=== PATIENT | male | born 1960 | race African-American/Black ===

== ENCOUNTER 2019-05-26 19:03 | Emergency (ER) | payer OTHER ==
[~2019-05-26] VITALS: Ht 185.4 cm; Wt 112.0 kg
[2019-05-26] MEDS ORDERED: FLONASE 0.05%50 MCG NARES (19:09)
[2019-05-26] MEDS ORDERED: VYZULTA5 ML OPHTHALMIC (19:14)
[2019-05-26] MEDS ORDERED: LISINOPRIL2.5 MG PO (19:17)
[2019-05-26] MEDS ORDERED: DULCOLAX STOOL100 M1 PO (19:18)
[2019-05-26] MEDS ORDERED: MIRALAX119 GM PO (19:18)
[2019-05-26] MEDS ORDERED: LORATIDINE 10 M10 M1 PO (19:18)
[2019-05-26] MEDS ORDERED: SUPER THERAVIT1 EACH PO (19:18)
[2019-05-26 19:25] LABS: ABSOLUTE NEUTROPHILS 3.1 thou/uL (1.4-8.2); BASOPHILS 0.7 % (0.0-2.0); EOSINOPHILS 5.9 % (0.0-3.0); HEMOGLOBIN 14.8 gm/dL (14.0-18.0); LYMPHOCYTES 25.8 % (24.0-44.0); MCH 29.3 pg (26.0-34.0); MCHC 32.9 g/dL (28.0-37.0); MCV 88.9 fL (80.0-100.0); MONOCYTES 10.7 % (1.0-8.0); PLATELET COUNT 152 thou/uL (150-400); POLYS 56.9 % (36.0-66.0); RBC 5.06 mil/uL (4.50-6.00); RDW 15.6 % (10.5-14.5); WBC 5.4 thou/uL (4.0-11.0)
[2019-05-26 19:33] LABS: ANION GAP 7 mmol/L (7-16); BUN 15 mg/dL (7-18); CHLORIDE 102 mmol/L (98-107); CO2 28 mmol/L (21-32); CREATININE 0.9 mg/dL (0.7-1.3); GLUCOSE 98 mg/dL (74-106); POTASSIUM 3.9 mmol/L (3.5-5.1); SODIUM 137 mmol/L (136-145)
[2019-05-26 19:35] LABS: CALCIUM 12.1 mg/dL (8.5-10.1)
[2019-05-26 19:43] LABS: ALBUMIN 3.7 g/dL (3.4-5.0); LIPASE 80 U/L (73-393); SGOT 22 U/L (15-37); SGPT 56 U/L (30-65); TOTAL BILIRUBIN 0.3 mg/dL (<0.1-1.0); TOTAL PROTEIN 7.4 g/dL (6.4-8.2); TROPONIN-I <0.06 ng/mL (<0.06)
[2019-05-26] MEDS ORDERED: ZANAFLEX4 M2 PO (21:33)
[2019-05-26] MEDS ORDERED: LYRICA200 MG PO (21:33)
[2019-05-26] MEDS ORDERED: BACLOFEN 10MG T10 MG PO (21:33)
[2019-05-26] MEDS ORDERED: ROBAXIN 750 MG750 MG PO (21:34)
[2019-05-26] MEDS ORDERED: NORTRIPTYLINE H10 M1 PO (21:34)
[2019-05-26] MEDS ORDERED: RESTORIL15 M1 PO (21:35)
[2019-05-26] MEDS ORDERED: ARTIFICIAL TEA1 EACH (21:35)
[2019-05-26] MEDS ORDERED: OXYCODONE HCL 55 MG PO ×2 (22:21→22:22)
[2019-05-27 00:20] VITALS: BP 139/73
--- NOTE | 2019-05-28 08:35 | EKG ---
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[facility] : 1960 Requested By: Caleb Avilez Order Number: [id number] MD: Rod Cardona Measurements Intervals [place] Rate: 71 P: 20 NC: 145 QRS: 13 QRSD: 93 T: 73 QT: 387 QTc: 421 Interpretive Statements Sinus rhythm Abnormal R-wave progression, early transition Nonspecific T abnormalities No previous ECG available for comparison Electronically Signed On 05-28-2019 8:35:00 SCHOOL ADJUSTMENT COUNSELOR by Rod Cardona [email or web address] <ELECTRONICALLY SIGNED> By: Rod Cardona MD, [facility] 05/28/19 0835 28 28 Rod Cardona MD, [facility] /EPI
== END 2019-05-27 00:34 | disposition home or self-care (01) ==
LOC: ER 19:03
PROVIDERS: Emergency Medicine
DX: E83.52 Hypercalcemia (principal); K59.00 Constipation, unspecified; F17.210 Nicotine dependence, cigarettes, uncomplicated

== ENCOUNTER 2019-05-30 23:54 | Inpatient (IN) | payer OTHER ==
[~2019-05-30] VITALS: Ht 185.4 cm; Wt 112.0 kg
--- NOTE | ~2019-05-30 | EMS ---
[address] [address] EMS Patient Care Report Name: LUPE SULTANA Room #: 441-P ADM IN M.R.#: [id number] Admission: 05/31/19 Attend Phys: Johnson Adams MD Discharge: Date of : 64 Report #: [id number] THIS REPORT FOR: //name// Report Transmitted: 05/30/2019 23:25 EMS Care Summary [place], [place]/[facility] Incident [id number] @ 05/30/2019 23:19 Incident [address] [place] [address] Patient LUPE SULTANA Male, 59 Years 1960 Patient Address [address] [place], [place] [id number] Patient History Hypertension (HTN),Paraplegia,Glaucoma, Patient Allergies No known allergies, Patient Medications Docusate Sodium, Loratadine, Fluticasone, Baclofen, Nortriptyline, Colace, Tizanidine, Polyethlene Glycol, Lisinopril, Chief Complaint AB PAIN Disposition Transported No Lights/[place] Dispatch Reason Abdominal Pain/Problems Transported To [facility] Narrative PT FOUND LYING IN BED. PT STATES HE HAS HAD AB PAIN FOR 1 WEEK. STAFF STATES XRAY SHOWS BOWEL OBSTRUCTION. TRANSPORTED WITHOUT INCIDENT. [address] [address] EMS Patient Care Report Name: LUPE SUTLANA Room #: 441-P ADM IN [facility].#: [id number] Admission: 05/31/19 Attend Phys: Johnson Adams MD Discharge: Date of : 64 Report #: [id number] Initial Vitals @23:40P: 94,R: 18,BP: 139/88,Pain: 4/10,GCS: 15,SpO2: 97,Revised Trauma: 12, Assessments @23:30MENTAL:No Abnormalities,SKIN:No Abnormalities,HEENT:Head/Face: No Abnormalities,Eyes: No Abnormalities,Neck/Airway: No Abnormalities,LUNG SOUNDS:General: Other,ABDOMEN:General: Other,PELVIS//GI:EXTREMITIES:PULSE:NEURO:No Abnormalities, Impression Abdominal Pain Procedures @23:30ALS AssessmentResponse: UnchangedSucceeded Timeline 23:16,Call Received 23:16,Dispatch Notified 23:19,Dispatched 23:20,En Route 23:24,On Scene 23:30,At Patient 23:30,ALS Assessment,Response: UnchangedSucceeded, 23:40,BP: 139/88 M,PULSE: 94,RR: 18 R,SPO2: 97 Ox,ETCO2: ,BG: ,PAIN: 4,GCS: 15, 23:41,Depart Scene 23:48,At Destination 00:06,Call Closed Disclaimer v1.1 Copyright 2020 [employer] This EMS Care Summary contains data elements from the applicable legal record (which may be displayed differently). It is designed to provide pertinent information for the following purposes: continuity of care, clinical quality, and state data reporting. The complete legal record is available to ED staff and administrators of the receiving hospital in [facility]'s Patient Tracker. All data is provided "as is."
--- NOTE | ~2019-05-30 | O ---
[facility] [place] [address] [place] [address] OPERATIVE REPORT Name: LUPE SULTANA Room #: 150-1 ADM IN M.R.#: [id number] Admission: 05/31/19 Attend Phys: Ansley Yoo MD Discharge: Date of : 64 Report #: [id number] THIS REPORT FOR: cc: [facility] - Clinic physician unknown [facility] - Clinic physician unknown Lauro Thibodeaux MD ~ CC: Ansley Yoo [facility] unknown DATE OF SERVICE: 05/31/2019 PREOPERATIVE DIAGNOSES: Small-bowel obstruction secondary to closed loop obstruction, possible internal hernia. POSTOPERATIVE DIAGNOSIS: Normal diagnostic laparoscopy. OPERATIVE PROCEDURE DONE: Diagnostic laparoscopy. OPERATING SURGEON: Lauro Thibodeaux MD SENIOR BI DEVELOPER: Jadon. INDICATIONS FOR THE PROCEDURE: The patient is a 59-year-old male who presented with abdominal distention and nausea. He has a history of quadriplegia. CT scan that was done showed features of a closed loop obstruction. The patient was advised diagnostic laparoscopy. The patient showed understanding and agreed to proceed. DESCRIPTION OF PROCEDURE: After explaining to the patient in detail and informed consent was obtained, the patient was identified in the preoperative holding area. The patient was transferred to the operating room and was placed in supine position. Subsequent sterile compressive devices were placed for DVT prophylaxis. Preoperative antibiotics were given. After induction of anesthesia, the patient was noted to have a large bowel movement on the operating table. Once this was cleaned up, the abdomen was prepped and draped in a sterile fashion. Through a left upper quadrant 1 cm incision using Optiview technique, peritoneal cavity was entered and pneumoperitoneum was created. Thereafter, under direct vision, another 5 mm trocar was placed in the left flank and another 5 mm trocar was placed in the left lower quadrant. On initial inspection, the colon appeared normal. I then inspected the small bowel from the terminal ileum proximally up to the ligament of Treitz. I did not notice any evidence of internal hernia or features to suggest obstruction or ischemia. The rest of the abdominal viscera appeared normal. The abdomen was then deflated. Incisions were then closed with 4-0 Monocryl. Dermabond was applied. The patient was stable at the end of the procedure. The patient was awoken from anesthesia and was transferred to the recovery room in [address] [address] OPERATIVE REPORT Name: LUPE SULTANA Room #: 150-1 [facility] IN [facility]#: [id number] Admission: 05/31/19 Attend Phys: Ansley Yoo MD Discharge: Date of : 64 Report #: [id number] condition. ESTIMATED BLOOD LOSS: Minimal. CONDITION OF THE PATIENT: Stable. FLUIDS GIVEN: Per anesthesia notes. SPECIMEN SENT: None. COMPLICATIONS: None. ANESTHESIA: General anesthesia. By: [id number] Lauro Thibodeaux MD /nt
[~2019-05-30 23:54] MED LIST: ARTIFICIAL TEA1 EACH; BACLOFEN 10MG T10 MG PO; DULCOLAX STOOL100 M1 PO; FLONASE 0.05%50 MCG NARES; LISINOPRIL2.5 MG PO; LORATIDINE 10 M10 M1 PO; LYRICA200 MG PO; MIRALAX119 GM PO; NORTRIPTYLINE H10 M1 PO; OXYCODONE HCL 55 MG PO; RESTORIL15 M1 PO; ROBAXIN 750 MG750 MG PO; SUPER THERAVIT1 EACH PO; VYZULTA5 ML OPHTHALMIC; ZANAFLEX4 M2 PO
[2019-05-31 00:01] VITALS: BP 132/74
[2019-05-31 00:30] LABS: ABSOLUTE NEUTROPHILS 7.6 thou/uL (1.4-8.2); BASOPHILS 0.4 % (0.0-2.0); EOSINOPHILS 0.3 % (0.0-3.0); HEMATOCRIT 45.7 % (42.0-52.0); HEMOGLOBIN 15.2 gm/dL (14.0-18.0); LYMPHOCYTES 12.6 % (24.0-44.0); MCH 29.3 pg (26.0-34.0); MCHC 33.2 g/dL (28.0-37.0); MCV 88.2 fL (80.0-100.0); PLATELET COUNT 189 thou/uL (150-400); POLYS 80.7 % (36.0-66.0); RBC 5.18 mil/uL (4.50-6.00); RDW 15.9 % (10.5-14.5); WBC 9.5 thou/uL (4.0-11.0)
[2019-05-31 00:39] LABS: ALBUMIN 3.2 g/dL (3.4-5.0); POTASSIUM 3.6 mmol/L (3.5-5.1); TOTAL BILIRUBIN 0.3 mg/dL (<0.1-1.0); TOTAL PROTEIN 7.1 g/dL (6.4-8.2)
[2019-05-31 00:48] LABS: CALCIUM 13.3 mg/dL (8.5-10.1)
[2019-05-31] MEDS ORDERED: ARTIFICIAL TEA1 EACH (03:59)
--- NOTE | 2019-05-31 04:17 | NUR ---
DR DURON TALKED WITH DR SOW
[2019-05-31 05:18] LABS: PROTIME 10.5 Seconds (9.3-11.4)
[2019-05-31 09:01] LABS: CREATININE 0.9 mg/dL (0.7-1.3); POTASSIUM 3.6 mmol/L (3.5-5.1)
[2019-05-31 09:03] LABS: CALCIUM 12.1 mg/dL (8.5-10.1)
--- NOTE | 2019-05-31 12:34 | NUR ---
NGT RIGHT NARE AT 56CM PER ANESTHESIA ORDERS
[2019-05-31 13:30] VITALS: BP 126/75
--- NOTE | 2019-05-31 19:49 | NUR ---
59 YO MALE ADMITTED FROM PACU. A&OX4. IV INTACT IN L AC AND R H. PT IS A PARA FROM A FALL LAST YEAR. REQUIRES 02 @ 4 LITERS TO [facility] SAT ABOVE 91%. INCONT OF B/B. CONDOM CATH PALACED ON PT. BED RESEARCH EXECUTIVE ORDERED. IV FLUIDS STARTED. ORIENTED PT TO ROOM. BED ALARM OM.
[2019-05-31 20:20] VITALS: BP 162/101
--- NOTE | 2019-06-01 03:39 | NUR ---
1910 ASSUMED CARE OF PT AFTER BEDSIDE REPORT, PT IS PARAPLEGIC WITH SENSATION, PT HAS TREMORS TO Bue WITH MOVEMENT. PT IS Q2HOUR TURN, WITH FALL PRECAUTIONS IN PLACE. PT WITH MED SOFT BM, AND CONDOM CATHETER IN PLACE. BLOW CALL LIGHT PLACED FOR PT, WILL CONTINUE TO MONITOR. INCISIONS TO ABDOMEN GLUED AND CLOSED, BLE ELEVATED
[2019-06-01 04:30] VITALS: BP 130/83
[2019-06-01 06:07] LABS: HEMATOCRIT 39.7 % (42.0-52.0); MCHC 32.4 g/dL (28.0-37.0); MCV 89.7 fL (80.0-100.0); RBC 4.43 mil/uL (4.50-6.00); RDW 15.8 % (10.5-14.5)
[2019-06-01 06:19] LABS: HEMOGLOBIN 12.9 gm/dL (14.0-18.0)
[2019-06-01 06:24] LABS: CALCIUM 11.8 mg/dL (8.5-10.1); POTASSIUM 3.7 mmol/L (3.5-5.1)
[2019-06-01 07:48] VITALS: BP 128/73
--- NOTE | 2019-06-01 09:25 | EKG ---
[facility] [place] [address] ELECTROCARDIOGRAM REPORT Name: LUPE SULTANA Room #: 441-P ADM IN M.R.#: [id number] Admission: 05/31/19 Attend Phys: Johnson Adams MD Discharge: Date of : 64 Report #: [id number] THIS REPORT FOR: cc: [facility] - Clinic physician unknown [facility] - Clinic physician unknown Rod Cardona MD [facility] THIS REPORT FOR: //name// [facility] ED Test Date: 2019-05-31 Test Time: 03:39:23 Pat Name: LUPE SULTANA Department: Room: [facility] Gender: M 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
[2019-06-01 12:02] LABS: PHOSPHORUS 1.5 mg/dL (2.5-4.9)
--- NOTE | 2019-06-01 15:41 | NUR ---
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 PT IS A QUADRAPLEGIC FROM FALLING DOWN A FLIGHT OF STAIRS. PT NEEDS ASSIST WITH ADLS AND TRANSFERS TO A WITH A LIFT DEVICE. PT SAYS HE WOULD LIKE A COPY OF HIS h&p AND DC SUMMARY WHEN HE LEAVES HERE SO HE CAN TAKE TO DISABILITY OFFICE. FOLLOWING TO ASSIST WITH DC PLANNING.
--- NOTE | 2019-06-01 16:40 | NUR ---
FAXED CLINICAL UPDATE TO [facility] RECEIVED CONFIRMATION AND LEFT MSG WITH SHELLEY (SHAWANDA) THAT UPDATE HAS BEEN FAXED. DP TO FOLLOW.
[2019-06-01 18:55] VITALS: BP 130/86
--- NOTE | 2019-06-01 19:07 | NUR ---
VSS-AFEBRILE. LUNGS CLEAR-2LNC. TURNED EVERY TWO HOURS FOR COMFORT. PAIN WELL CONTROLLED WITH IV PAIN MEDICATIONS. NO REPORTED N/V, TOLERATED CLEAR LIQUID DIET. POSITIVE BS-PASSING FLATUS. CALLS APPROPRIATELY FOR ASSISTANCE, FALL PRECAUTIONS IN PLACE.
[2019-06-01 19:30] VITALS: BP 143/93
[2019-06-02 04:10] VITALS: BP 147/92
--- NOTE | 2019-06-02 04:34 | NUR ---
ASSESSMENT COMPLEETD.PT C/O PAIN ON HIS ABCK,MANAGED WITH MED.PT REPOSITIONED WHILE IN BED.PT HAD ONE EPISODE OF LOOSE STOOL,COMPLETE BED CHANGE AND PEDRO CARE DONE.CONDOM CATH IN PLACE TO DD.PT CONT ON HIS IV ABX.PT HAS THREE LAP SITE COVERED WITH DERMABOND.PT RESTING ON HIS BED AT THIS TIME.FALL PRECAUTIONS IN PLACE,CALL LIGHT WITHIN REACH.
[2019-06-02 06:02] LABS: ABSOLUTE NEUTROPHILS 4.5 thou/uL (1.4-8.2); BASOPHILS 0.6 % (0.0-2.0); EOSINOPHILS 1.1 % (0.0-3.0); HEMATOCRIT 40.1 % (42.0-52.0); LYMPHOCYTES 23.1 % (24.0-44.0); MCH 29.3 pg (26.0-34.0); MCHC 32.5 g/dL (28.0-37.0); MCV 90.2 fL (80.0-100.0); MONOCYTES 10.1 % (1.0-8.0); PLATELET COUNT 178 thou/uL (150-400); POLYS 65.1 % (36.0-66.0); RBC 4.45 mil/uL (4.50-6.00); RDW 15.5 % (10.5-14.5); WBC 6.9 thou/uL (4.0-11.0)
[2019-06-02 06:14] LABS: CALCIUM 11.9 mg/dL (8.5-10.1); CREATININE 0.9 mg/dL (0.7-1.3); POTASSIUM 3.1 mmol/L (3.5-5.1)
[2019-06-02 08:41] VITALS: BP 164/100
[2019-06-02] MEDS ORDERED: AUGMENTIN 875-1 EACH PO (13:56)
--- NOTE | 2019-06-02 14:57 | NUR ---
Assumed care of pt at 0700. Pt quadriplegic. Q2h turn. Condom catheter in place. Diet advanced. Pt tolerated well. Will be discharged to [facility]. [facility] called and stated they can receive patient today. Prefer ambulance transport. Called non-emergent ambulance transport. State pt needs approval from [place] emergency department for Medicaid. [facility] called. State they cannot find patient. [facility] called for [facility], [facility]. Pick-up between [phone]. Will give report to Erin yee. Fall precautions in place. Will continue to monitor.
[2019-06-02 18:03] VITALS: BP 108/63
== END 2019-06-02 18:12 | DRG 326 ==
LOC: ER 23:54 → EROBS 05-31 02:52 → 4S 05-31 02:52 → TBA 05-31 13:31 → 4S 05-31 16:05
PROVIDERS: Emergency Medicine Emergency Medical Services; Nurse Practitioner Family; Surgery; ADMIT Hospitalist
PROC: 0DJ04ZZ Inspection of Upper Intestinal Tract, Percutaneous Endoscopic Approach (ICD-10-PCS; principal; 2019-05-31)
DX: K56.609 Unspecified intestinal obstruction, unspecified as to partial versus complete obstruction (principal); J18.9 Pneumonia, unspecified organism; G82.50 Quadriplegia, unspecified; K59.2 Neurogenic bowel, not elsewhere classified; F32.9 Major depressive disorder, single episode, unspecified; F17.210 Nicotine dependence, cigarettes, uncomplicated; E83.52 Hypercalcemia; N31.9 Neuromuscular dysfunction of bladder, unspecified; K52.9 Noninfective gastroenteritis and colitis, unspecified; K56.7 Ileus, unspecified; Z28.21 Immunization not carried out because of patient refusal; Z79.899 Other long term (current) drug therapy
CPT/HCPCS: 10102; 50010; 50101; 50249; 50411; 50555; 52265; 53307; 54118; 56462; 56526; 70005

== ENCOUNTER 2019-08-18 21:15 | Inpatient (IN) | payer OTHER ==
[~2019-08-18] VITALS: Ht 185.4 cm; Wt 129.4 kg
[~2019-08-18 21:15] MED LIST changes: +AUGMENTIN 875-1 EACH PO
[2019-08-18 21:24] VITALS: BP 132/87
[2019-08-18 21:40] LABS: HEMATOCRIT 46.9 % (42.0-52.0); HEMOGLOBIN 15.6 gm/dL (14.0-18.0); MCH 29.8 pg (26.0-34.0); MCHC 33.2 g/dL (28.0-37.0); MCV 89.8 fL (80.0-100.0); PLATELET COUNT 139 thou/uL (150-400); RBC 5.22 mil/uL (4.50-6.00); RDW 15.8 % (10.5-14.5); WBC 5.9 thou/uL (4.0-11.0)
[2019-08-18] MEDS ORDERED: BACLOFEN 10MG T10 MG PO (21:44)
[2019-08-18 21:53] LABS: ALBUMIN 3.6 g/dL (3.4-5.0); ANION GAP 6 mmol/L (7-16); BUN 12 mg/dL (7-18); CHLORIDE 106 mmol/L (98-107); CO2 30 mmol/L (21-32); GLUCOSE 100 mg/dL (74-106); LIPASE 85 U/L (73-393); POTASSIUM 3.5 mmol/L (3.5-5.1); SGOT 34 U/L (15-37); SGPT 98 U/L (30-65); SODIUM 142 mmol/L (136-145); TOTAL BILIRUBIN 0.5 mg/dL (<0.1-1.0); TOTAL PROTEIN 7.3 g/dL (6.4-8.2)
[2019-08-18 22:12] LABS: ABSOLUTE NEUTROPHILS 3.1 thou/uL (1.4-8.2)
[2019-08-18 22:15] LABS: CALCIUM 12.5 mg/dL (8.5-10.1); TROPONIN-I <0.06 ng/mL (<0.06)
[2019-08-18 22:33] LABS: MAGNESIUM 1.5 mg/dL (1.8-2.4); PHOSPHORUS 1.7 mg/dL (2.5-4.9)
[2019-08-18 23:10] VITALS: BP 132/87
[2019-08-18 23:50] VITALS: BP 151/91
[2019-08-19 00:46] VITALS: BP 155/14
[2019-08-19 04:33] VITALS: BP 133/73
[2019-08-19 07:19] VITALS: BP 152/84
--- NOTE | 2019-08-19 07:25 | NUR ---
PATIENT ADMITTED FOR ABD PAIN. PATIENT DENIED PAIN OR DISCOMFORT AT THIS TIME. PATIENT IS CALM AND COOPERATIVE WITH CARE AND MEDS.PATIENT AOX4 MAKES NEEDS KNOWN. PATIENT IS A QUAD. TURN Q 2 HOURS. PATIENT ON CLEAR LIQUIDS AND TOLERATED WELL. PATIENT SKIN IS WARM AND INTACT. PATIENT IS A TOTAL CARE. FALL PRECAUTION IN PLACE.PATIENT IN BED ASLEEP AT THIS TIME BREATHING REGULAR AND UNLABOURED.
[2019-08-19 07:35] LABS: HEMATOCRIT 45.5 % (42.0-52.0); HEMOGLOBIN 15.2 gm/dL (14.0-18.0); MCH 29.8 pg (26.0-34.0); MCHC 33.3 g/dL (28.0-37.0); MCV 89.4 fL (80.0-100.0); RBC 5.1 mil/uL (4.50-6.00); RDW 15.5 % (10.5-14.5); WBC 4.7 thou/uL (4.0-11.0)
[2019-08-19 07:58] LABS: CREATININE 0.8 mg/dL (0.7-1.3); MAGNESIUM 1.7 mg/dL (1.8-2.4); PHOSPHORUS 2.5 mg/dL (2.5-4.9); POTASSIUM 3.2 mmol/L (3.5-5.1)
[2019-08-19 08:35] LABS: CREATININE 0.8 mg/dL (0.7-1.3); PHOSPHORUS 2.7 mg/dL (2.5-4.9)
[2019-08-19 14:35] VITALS: BP 141/80
--- NOTE | 2019-08-19 19:54 | NUR ---
Assumed patient care at 0715. Vital signs stable. LSCTA, abdomen soft and non-tender, BS x's 4, skin is clean, warm, dry and intact. Pillows have been repositioned several times today, under his arms. legs and feet. Patient continues on a clear liquid diet with good intake. He currently has a [place] catheter in place (total output for this shift was 1350cc). He was given Miralax as scheduled with am medications; no results as of this time. Patient has a flat affect but has been pleasant and cooperative. Normal Saline continues at 125cc/hr. Patient has complained of pain to upper and lower extremeties; he was educated to let nurse know if Lyrica and Baclofen did not completely relieve the pain (he voiced no further complaints). Novelty Printing Machine Operator notified of patient's need for a modified call light for this patient; still waiting for response. Patient has been checked on and assisted often throughout this shift. Report given to on-coming nnurse.
[2019-08-19 20:36] VITALS: BP 146/86
--- NOTE | 2019-08-20 04:16 | NUR ---
PATIENT IS QUADRAPLEGIA, PATIENT TURNED Q 2 TURN. PERICARE AND BARRIER CREAM APPLIED NEEDED. PATIENT IS CALM AND COOPERATIVE WITH CARE AND MEDS. PATIENT IN BED ASLEEP AT THIS TIME BREATHING REGULAR AND UNLABOURED.
[2019-08-20 07:54] VITALS: BP 139/79
--- NOTE | 2019-08-20 08:03 | EKG ---
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 : 1960 Requested By: Laci Acuña Order Number: [id number] MD: Rod Cardona Measurements Intervals [place] Rate: 75 P: 44 GA: 157 QRS: 21 QRSD: 101 T: 59 QT: 352 QTc: 394 Interpretive Statements Sinus rhythm Abnormal R-wave progression, early transition Compared to ECG 05/31/2019 03:39:23 No significant change was found Electronically Signed On 08-20-2019 8:01:27 CDT by Rod Cardona [email or web address] <ELECTRONICALLY SIGNED> By: Rod Cardona MD, [facility] 08/20/19 0801 38 38 Rod Cardona MD, [facility] /EPI
[2019-08-20 12:40] LABS: HEMATOCRIT 42.3 % (42.0-52.0); MCH 29.5 pg (26.0-34.0); MCHC 33.1 g/dL (28.0-37.0); MCV 88.9 fL (80.0-100.0); RBC 4.75 mil/uL (4.50-6.00); RDW 15.7 % (10.5-14.5); WBC 5.4 thou/uL (4.0-11.0)
[2019-08-20 12:47] LABS: CALCIUM 10.8 mg/dL (8.5-10.1); MAGNESIUM 1.6 mg/dL (1.8-2.4); POTASSIUM 3.6 mmol/L (3.5-5.1); TOTAL BILIRUBIN 0.4 mg/dL (<0.1-1.0); TOTAL PROTEIN 6.3 g/dL (6.4-8.2)
[2019-08-20 12:54] LABS: APTT 28.8 Seconds (24.5-32.8); INR 1.1; PROTIME 10.8 Seconds (9.3-11.4)
--- NOTE | 2019-08-20 14:18 | NUR ---
PT ADMITTED RELATED TO ABD PAIN. CM REVIEWED CHART AND SPOKE WITH CARE TEAM. CM CALLED AND SPOKE WITH PT AT BEDSIDE THIS DAY. PT APPEARED TO BE A&O X4. CM ROLE INTRODUCED. PT INDICATED HE LIVES IN LTC AT [facility]. PT INDICATED HE NEEDED ASSISTANCE WITH ALL ADLS AND THAT STAFF HAD USED A ARNAUD LIFT TO ASSIST WITH TRANSFERS PAYMENT PROCESSOR. PT IS QUADRAPLEGIC. PT INDICATED THAT HE ANTICPATES RETURNING TO [facility] ONCE MEDICALLY STABLE. CLINICAL INFO SENT TO FACILITY. CM TO FOLLOW INDICATED WITH DC PLANNING.
[2019-08-20 16:27] VITALS: BP 138/87
--- NOTE | 2019-08-20 19:34 | HC ---
[facility] [place] [address] CONSULTATION Name: LUPE SULTANA Room #: 463-P ADM IN M.R.#: [id number] Admission: 08/19/19 Attend Phys: Ansley Yoo MD Discharge: Date of : 64 Report #: [id number] THIS REPORT FOR: cc: [facility] - Clinic physician unknown [facility] - Clinic physician unknown Anurag Magana MD ~ CC: [facility] unknown Cari Fang Leoncio DATE OF SERVICE: 08/19/2019 HISTORY OF PRESENT ILLNESS: The patient is a 59-year-old male admitted through the Emergency Room with increasing abdominal bloating and pain, also with a history of diarrhea, although he states he has been taking MiraLax from time to time at his nursing facility. The patient has a history of quadriplegia, although he is able to move somewhat his upper extremities and left lower extremity. He states he is able to sense when he needs to have a bowel movement. He is unsure when his last colonoscopy was performed, he thought it may have been during the last hospitalization. He underwent a hospitalization in May this year for small-bowel obstruction. He actually had an exploratory laparoscopy at that time, which was normal. The CT at that time suggested a closed loop small-bowel obstruction. The patient recovered from surgery without difficulty. He reports increasing abdominal distention at times, he does have pain during these episodes, it does tend to improve after a bowel movement. He denies any obvious blood in his stools. He denies any nausea or vomiting, no dysphagia, no heartburn symptoms. His appetite has been normal. No family history of colon cancer. He underwent a CT scan of the abdomen and pelvis on admission yesterday that showed gaseous distention in the distal colon and rectum, no evidence of colitis or diverticulitis, a normal appendix, stomach was normal, small bowel normal. He denies any chest pain or shortness of breath. No cough or fever. PAST MEDICAL HISTORY: Quadriplegia secondary to traumatic fall approximately 1 year ago, history of hypertension, small-bowel obstruction in May this year with normal laparoscopy, neurogenic bladder, hypercalcemia, depression, previous history of pneumonia. REVIEW OF SYSTEMS: As per HPI. SOCIAL HISTORY: He is a longtime smoker, continues to smoke. Denies any alcohol use. FAMILY HISTORY: Negative for colon cancer. ALLERGIES: No known drug allergies. [facility] [address] [place] [address] CONSULTATION Name: SULTANALUPE JARVIS Room #: 463-P [facility] ..#: [id number] Admission: 08/19/19 Attend Phys: Ansley Yoo MD Discharge: Date of : 64 Report #: [id number] MEDICATIONS: This is on admission, Flonase, Vyzulta, Zestril, loratadine, multivitamin, MiraLax, Lyrica, Zanaflex, baclofen, Robaxin, nortriptyline, Restoril, oxycodone IR, docusate. PHYSICAL EXAMINATION: VITAL SIGNS: Temperature is 98.6, pulse 75, blood pressure 141/80, respiratory rate is 18. GENERAL: He is alert and oriented x 3, in no acute distress. HEENT: Sclerae nonicteric. Oropharynx clear. NECK: Supple, without lymphadenopathy. CARDIOVASCULAR: Regular rate and rhythm. CHEST: Clear to auscultation bilaterally. ABDOMEN: Soft. He is mildly distended, positive bowel sounds, and nontender. EXTREMITIES: Unable to move his right lower extremity, able to move his left lower extremity, limited motion, less mobility in his right upper extremity compared to his left, but both are compromised. LABORATORY DATA: Sodium 144, potassium 3.2, chloride 108, bicarbonate 28, BUN 11, creatinine 0.8, glucose 98, AST 34, lipase 85, total bilirubin 0.5, calcium 12.0, magnesium 1.7, alkaline phosphatase 141, ALT is 98, albumin 3.6, lactic acid level 1.2. Troponin less than 0.06. WBC is 4.7, hemoglobin 15.2, platelet count is 125. PTH is 94. ASSESSMENT AND PLAN: 1. Abdominal pain and abdominal distention, etiology is unclear. It appears the patient has some history of constipation and is on MiraLax and stool softeners at his nursing facility; however, recently also complains of diarrhea. He does report improvement in his symptoms after a bowel movement. It is unclear when the patient has had his last colonoscopy, may need to consider repeat colonoscopy in the near future. He did have some mild gaseous distention of the rectum and distal colon. He denies any evidence of bleeding. His white count and hemoglobin are normal, he is afebrile. Again, consider possible colonoscopy in the near future for further evaluation. The patient had laparoscopy in May, which was normal. There were no signs of bowel obstruction on CT during this hospitalization. 2. Mild elevation in his liver function tests. No history of liver disease. Gallbladder and liver were normal on CT. Would monitor at this point. If they remain elevated, may need to consider further workup. Thank you for allowing me to participate in his care. <ELECTRONICALLY SIGNED> By: Anurag Magana MD 08/20/19 1934 1656 27 Anurag Magana MD /stevie
--- NOTE | 2019-08-20 19:39 | NUR ---
Assumed patient care at 0715. Vital signs stable, LSCTA (diminished), abdomen is non-tender and distended. Patient has not had a BM for the last two days. He continues on Clear Liquids, may have surgery on Thyroid within the next few days. Nuclear Medicine called to report that patient cannot have a Parathyroid Test or be on any Thyroid Medications for three weeks due to a recent test with contrast on the 16th of this month. Patient's IV is patent/saline locked in left anticubital area. No prn medication medications requested/needed today; scheduled pain medications have been effective for this patient. Report given to on-coming nurse.
[2019-08-20 20:21] VITALS: BP 160/103
--- NOTE | 2019-08-21 02:25 | NUR ---
PT CARE ASSUMED AT 1915 WITH PT IN BED.PT IS A/O X4.PT IS BEDBOUND AND MAXIMUM ASSIST.PT HAS A CONDOM CATHETER IN PLACE .PT IS TOTAL CARE AND QUADRAPLEGIA.PT IS A FEEDER .PT ON CLEAR LIQUID DIET .PT C/O OF ROGHT SIDE PAIN AND WAS ADMINISTERED MORPHINE WITH RELIEF.PT APPEAR TO BE IN NO ACUTE DISTRESS.WILL CONTINUE TO MONITOR
[2019-08-21 05:21] VITALS: BP 149/82
[2019-08-21 07:12] VITALS: BP 155/95
[2019-08-21 08:49] LABS: CREATININE 0.9 mg/dL (0.7-1.3); MAGNESIUM 1.4 mg/dL (1.8-2.4); TOTAL BILIRUBIN 0.5 mg/dL (<0.1-1.0); TOTAL PROTEIN 5.8 g/dL (6.4-8.2)
--- NOTE | 2019-08-21 12:11 | HC ---
[facility] [place] [address] [place] [address] CONSULTATION Name: LUPE SULTANA Room #: 463-P ADM IN M.R.#: [id number] Admission: 08/19/19 Attend Phys: Ansley Yoo MD Discharge: Date of : 64 Report #: [id number] THIS REPORT FOR: cc: [facility] - Clinic physician unknown [facility] - Clinic physician unknown Lindy Whyte MD ~ CC: Ansley FLORES unknown DATE OF SERVICE: 08/20/2019 ENDOCRINE CONSULTATION NOTE CONSULTING PHYSICIAN: Dr. Fang. REASON FOR CONSULTATION: Hypercalcemia. HISTORY OF PRESENT ILLNESS: This is a 59-year-old male patient who presented from her [place] [facility] facility due to issues with abdominal pain, distention associated with nausea and diarrhea. 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 It appears that he had a similar issue in 05/2019 which forced a diagnostic laparotomy at that time due to an outlook of small-bowel obstruction. It has been noted in his admission in May and then again now that the patient is hypercalcemic with the calcium levels persisting above 12 mg/dL. The patient has not had issues with nephrolithiasis, kidney dysfunction, depression, poor focus, but does report off and on issues with abdominal distention, abdominal discomfort, nausea as well as diffuse muscle aches and bone aches. The patient has never had a history of pancreatitis and has not had history of known osteoporosis or fractures. REVIEW OF SYSTEMS: CONSTITUTIONAL: Fatigue, tiredness, but not fever or chills or body weight changes. HEENT: Negative for sore throat, sinus pain, ear drainage. PULMONARY: Negative for shortness of breath, cough or hemoptysis. CARDIAC: Negative for chest pain, palpitations, syncope or presyncope. GASTROINTESTINAL: Noted for recurrent issues with abdominal distention, diarrhea, nausea and an outlook of small-bowel obstruction. NEUROLOGY: Quadriplegia baseline. No seizure activity or loss of consciousness. PSYCHOLOGY: Negative for delusions, hallucinations. Otherwise, review of systems noncontributory unless mentioned in HPI. PAST MEDICAL HISTORY: [facility] [address] [place] [address] CONSULTATION Name: LUPE SULTANA Room #: 463-P [facility] IN .R.#: [id number] Admission: 08/19/19 Attend Phys: Ansley Yoo MD Discharge: Date of : 64 Report #: [id number] 1. 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 2. Hypertension. 3. Depression. 4. Hypercalcemia as noted in HPI. 5. Neurogenic bladder. 6. History of pneumonia. 7. Central cord syndrome. PAST SURGICAL HISTORY: Diagnostic laparotomy and for 05/2019. ALLERGIES: No known drug allergies. OUTPATIENT MEDICATIONS: Include Flonase spray daily, lisinopril 5 mg daily, loratadine 10 mg daily, multivitamins daily, Lyrica t.i.d., Zanaflex 1.5 mg t.i.d., baclofen 20 mg q.i.d., Robaxin 750 mg q.i.d., nortriptyline 10 mg at bedtime, Restoril 1 tab q.h.s., Colace 1 cap b.i.d. FAMILY HISTORY: Noncontributory. SOCIAL HISTORY: The patient notes that he used to smoke 1-1/2 packs per day, used to drink alcohol intermittently and smoked weed intermittently. PHYSICAL EXAMINATION: GENERAL: Pleasant -Rwand[place] male patient who is lying in bed, appears comfortable in not apparent distress. VITAL SIGNS: Blood pressure 139/79 mmHg, heart rate is 75 beats per minute, respiration 18 per minute, temperature 36.8 degrees. HEENT: Anicteric sclerae. Intact extraocular motions. NECK: Supple, without JVD, carotid bruits or lymphadenopathy. I do not appreciate thyromegaly. CHEST: Noted for moderate air entry bilaterally with scattered rales and rhonchi, but without wheezes or crackles. HEART: Regular rate and rhythm without murmurs or gallops. ABDOMEN: Soft, lax. No guarding. Slight discomfort to deep palpation. Active bowel sounds. EXTREMITIES: Lower extremity exam is noted for ankle edema bilaterally. No major skin breaks. NEUROLOGIC: Awake, alert and oriented to time, place and person. The rest of his exam is noted for the baseline quadriplegia. PSYCHIATRIC: Pleasant, interactive. Normal thought process. Normal mood and affect. LABORATORY RESULTS: Sodium 144, potassium 3.2, chloride 108, CO2 of 28, anion gap 8, BUN 11, creatinine 0.8, glucose 98, AST 34, lipase 85, total bilirubin 0.5, calcium is 12, was as high as 12.5 on 08/17, it was as high as 13.3 on 05/31, phosphorus 2.5, magnesium 1.7, alkaline phosphatase 141, ALT 98, total [facility] [address] [place] [address] CONSULTATION Name: LUPE SULTANA Room #: 463-P ADM IN M.R.#: [id number] Admission: 08/19/19 Attend Phys: Ansley Yoo MD Discharge: Date of : 64 Report #: [id number] protein 7.3, albumin 3.6, EGFR 121. Lactic acid 1.2. Troponin negative. INR 1.0. White blood count 4.7, hemoglobin 15.2, hematocrit 45.5, platelets 125. Ionized calcium is elevated at 7.5, upper limit of normal is 5.6. PTH is 94 was documented at 115 in 05/2019. Vitamin D is pending. ASSESSMENT AND PLAN: 1. Hypercalcemia. The patient's level of hypercalcemia is noted for consistent severe elevation of serum calcium levels as defined by levels of 12 mg/dL or higher. These are associated with symptoms of diffuse muscle and bone aches as well as GI and abdominal issues, although these are nonspecific. Moreover, the patient's recent CT scan of the abdomen and pelvis was noted for nonobstructive renal calculi in the right kidney measuring up to 5 mm. The patient is currently maintained on IV fluids at 125 mL per hour. I would like to keep this rate of hydration to maintain short term control over the calcium levels. This can be coupled with loop diuresis or more aggressive hydration should his calcium levels elevate from here. I would like to continue to monitor his calcium levels periodically. In combination with the consistently elevated parathyroid hormone, this is diagnostic of primary hyperparathyroidism as discussed below. 2. Primary hyperparathyroidism. The combination of severe hypercalcemia with persistently elevated PTH levels as diagnostic of primary hyperparathyroidism. The patient was counseled at length about the pathogenesis of this condition, its implications, and the available therapeutic interventions. Given the documentation of severe hypercalcemia on multiple occasions as well as documentation of renal calculi on his recent CT scan, the patient would be indicated for surgical intervention in the form of a parathyroidectomy. This was discussed with the patient at length. While the diagnosis of primary hyperparathyroidism is secured biochemically, I would strongly recommend proceeding with imaging studies to localize the culprit PTH adenoma as a way to prepare for surgery as this would facilitate a shorter and more concise surgery. In doing so, I would like to obtain and neck ultrasound study as well as a parathyroid sestamibi nuclear imaging study. The patient is agreeable to proceed with these images. Also, given the determination that the patient is a candidate for a parathyroidectomy, I believe that a general surgical consult with Dr. Lyle would be advised and the patient is willing to meet and discuss the case with him, although he did not specifically yet state that he is agreeable with surgery as he would want to discuss this with family members first. The patient understands that should he maintain this level of hypercalcemia long-term that end-organ complications are likely to happen. Also, as his calcium levels were to go higher than this, the patient could acutely develop issues pertaining to renal insufficiency, dehydration and short term complications. 3. Hypertension. The patient's level of blood pressure control is adequate. Continue the current regimen. [address] [address] CONSULTATION Name: LUPE SULTANA Room #: 463-P [facility] IN M.R.#: [id number] Admission: 08/19/19 Attend Phys: Ansley Yoo MD Discharge: Date of : 64 Report #: [id number] I have reviewed the patient's clinical care notes, laboratory data, radiology data, and other pertinent clinical information past and present for over 35 minutes in addition to my [id number] time with the patient. I appreciate this consultation by Dr. Fang. <ELECTRONICALLY SIGNED> By: Lindy Whyte MD 08/21/19 1211 [id number] [id number] Lindy Whyte MD /nt
[2019-08-21 15:18] VITALS: BP 138/89
--- NOTE | 2019-08-21 16:01 | NUR ---
on-going assessment: CM REVIEWED CHART. PT HAS DISTENTION OF THE COLON AND RECTUM AND PLANS ARE FOR PATIENT TO HAVE COLONOSCOPY TOMORROW AM. CM CONTACTED [facility] IN ADMISSIONS AT [facility] TO UPDATE. CM WILL CONTINUE TO FOLLOW TO ASSIST NEEDED.
[2019-08-21 20:03] VITALS: BP 152/87
--- NOTE | 2019-08-21 20:44 | NUR ---
Assumed patient care at 0715. Vital signs stable, alert and oriented x's 4, LSCTA, abdomen non-tender and distended (he had a large bowel movement this afternoon). Skin is clean, warm, dry and intact. Patient has good intake and output. He started on Bowel Prep this evening, to be NPO after midnight. Patient to have a Colonoscopy in am. Rapid COVID test completed today; results are negative. Report given to on-coming nurse.
--- NOTE | 2019-08-22 07:37 | NUR ---
ASSUMED PT CARE AROUND 1999. AXOX4. IVF D/C PER BETA TESTER ORDER. PT COMPLETED BOWEL PREP, STILL UNCLEAR. PAGED AND INFORMED INCOMING RN OF NOT CLEAR STOOL FOR F/U. KEPT NPO FOR PROCEDURE. S/S ACUTE DISTRESS NOTED OR REPORTED AT THIS TIME. CARE TRANSFERRED TO INCOMING RN AT THIS TIME.
[2019-08-22 07:39] VITALS: BP 156/98
--- NOTE | 2019-08-22 13:55 | NUR ---
PT HAVING A COLONOSCOPY THIS DAY. UPDATED CLINICAL TO BE SENT TO [facility]. PLAN IS FOR PT TO DC BACK THERE ONCE MEDICALLY STABLE.
[2019-08-22 15:19] VITALS: BP 125/86
--- NOTE | 2019-08-22 19:58 | NUR ---
Assumed pt care this am, pt is NPO and scheduled for colonoscopy at 11 am, water enema done 2x, colonoscopy completed. VS stable, no signs or verbalizations of distress noted. when offered to shave his carroll pt refused stated he will get it when he goes back to his facility. External mcgarry in placce draining light yellow urine. To be NPO tonight post midnight for NM parathyrodial spect tomorrow. POC followed, endrosed to the night nurse.
[2019-08-22 20:00] VITALS: BP 144/83
--- NOTE | 2019-08-23 04:49 | NUR ---
ASSUMED PT CARE AROUND 1930. AXOX4. SOFT TOUCH ALARM PLACED NEAR PT FOR ASSISTANCE PRN. PT ABLE TO MAKE NEEDS KNOWN VERBALLY ALSO. FREQUENT OBSERVATION PER PT INCOMPLETE QUAD. KEPT NPO AFTER MN FOR NM SCAN IN AM. NO S/S ACUTE DISTRESS NOTED OR REPORTED AT THIS TIME. WILL CONT TO MONITOR FOR ANY CHANGES IN CONDITION.
[2019-08-23 05:06] VITALS: BP 122/79
[2019-08-23 06:00] LABS: HEMATOCRIT 43.8 % (42.0-52.0); HEMOGLOBIN 14.8 gm/dL (14.0-18.0); MCHC 33.7 g/dL (28.0-37.0); MCV 88.9 fL (80.0-100.0); RBC 4.93 mil/uL (4.50-6.00); RDW 14.9 % (10.5-14.5); WBC 6.2 thou/uL (4.0-11.0)
[2019-08-23 06:21] LABS: CALCIUM 11.6 mg/dL (8.5-10.1); CREATININE 0.9 mg/dL (0.7-1.3); MAGNESIUM 1.5 mg/dL (1.8-2.4); POTASSIUM 3.6 mmol/L (3.5-5.1)
[2019-08-23 08:50] VITALS: BP 137/82
--- NOTE | 2019-08-23 15:49 | NUR ---
BASED ON FINDINGS FROM SCAN TODAY IT IS ANTICIPATED THAT PT WILL GO TO THE OR TOMORROW FOR A PARATHYROIDECTOMY. CM TO FOLLOW INDICATED WITH DC PLANNING. CLINICAL UPDATED TO BE SENT TO [facility].
[2019-08-23 19:24] VITALS: BP 140/81
--- NOTE | 2019-08-23 19:53 | NUR ---
Assumed pt care this am, NPO tjis am and went down for NM parathyroid spect and CT. Seen by Dr. Lyle, for surgery mic am, parathyroid removal. Q2 turns and complete bed bath done. Condom cat in place draining yellow urine, to be NPO midnight onwards tonight. POC followed with no signs or verbalizations of distress noted. Endorsed to the night nurse.
[2019-08-24] VITALS (10 sets, daily range): BP systolic 116–164; BP diastolic 74–100
--- NOTE | 2019-08-24 06:28 | NUR ---
ASSESSMENT: PT REMAIN ALERT TIMES THREE. NPO AT MN FOR REMOVAL OF PARATHYROID PER DR. LUTHER. VSS, AFBRILE. C/O EYES BEING LEAKY. WASHED AND EYE GTTS APPLIED. SLOW PROGRESS TOWARDS DC GOALS, WILL CONTINUE TO MONITOR.
[2019-08-24 06:44] LABS: POTASSIUM 3.4 mmol/L (3.5-5.1)
[2019-08-24 06:49] LABS: CALCIUM 12.2 mg/dL (8.5-10.1)
--- NOTE | 2019-08-24 08:27 | P ---
[facility] [place] [address] [address] [place] [address] PROCEDURE REPORT Name: LUPE SULTANA Room #: 463-P ADM IN M.R.#: [id number] Admission: 08/19/19 Attend Phys: Ansley Yoo MD Discharge: Date of : 64 Report #: [id number] THIS REPORT FOR: cc: [facility] - Clinic physician unknown [facility] - Clinic physician unknown Anurag Magana MD ~ CC: Ansley Yoo MD [facility] unknown DATE OF SERVICE: 08/22/2019 PROCEDURE PERFORMED: Colonoscopy with polypectomies. HISTORY OF PRESENT ILLNESS: The patient is a 59-year-old male who was admitted on 08/18/2019 through the Emergency Department with abdominal pain as well as abdominal distention. In May, there was concern for a small-bowel obstruction. CT at that time showed a closed loop of small bowel. He underwent a laparoscopy which was normal. No previous history of colonoscopy. He had a repeat CT scan on 08/18/[address] findings to explain abdominal pain, gaseous distention of the distal colon and rectum. No evidence of colitis or diverticulitis. Normal appendix. The patient is a quadriplegic. Hemoglobin is normal. No family history of colon cancer. DESCRIPTION OF PROCEDURE: The risks and benefits of the procedure were explained to the patient, those risks including but not limited to bleeding, perforation and the risk of sedation. He understood these risks and gave informed consent. Sedation was given using propofol per anesthesia. Next, a digital rectal exam was initially performed, which was normal. Next, using a standard Olympus colonoscope, the scope was placed in the patient's anus and advanced under direct vision to the cecum. The prep was poor in several areas. The cecum visualization was limited due to poor prep. The areas that were visualized were normal. Ileocecal valve was normal. In the ascending colon, an 8 mm sessile polyp was noted. This was removed by snare polypectomy. Otherwise, normal ascending colon in areas that were visualized. The colon itself was somewhat dilated suggesting possible dysmotility of the colon. The dilation was noted throughout the colon. The transverse, descending colon were normal other than the dilation again visualization was somewhat limited in areas due to poor prep, in the sigmoid colon, a 3 mm sessile polyp. This was removed by cold forceps. The rectal mucosa had a fair amount of mix of solid and liquid stools. I did perform washings and aspirations. No obvious abnormalities were noted in the rectum. Again, visualization was somewhat limited. On retroflexion, no obvious abnormalities were noted. At this point, the scope was then withdrawn and the procedure terminated. The patient tolerated the procedure well. [address] [address] PROCEDURE REPORT Name: LUPE SULTANA Room #: 463-P [facility] IN M.R.#: [id number] Admission: 08/19/19 Attend Phys: Ansley Yoo MD Discharge: Date of : 64 Report #: [id number] IMPRESSION: 1. Two colonic polyps. 2. Poor prep in several different areas as described above, which did limit visualization. 3. Generalized distention of the colon suggesting an atonic or dysmotility of the colon. RECOMMENDATIONS: 1. Await biopsy results. 2. Would recommend a bowel regimen of daily MiraLax and observing at this point. Thank you for allowing me to participate in his care. <ELECTRONICALLY SIGNED> By: Anurag Magana MD 08/24/19 0827 1453 1754 Anurag Magana MD /nt
--- NOTE | 2019-08-24 09:16 | NUR ---
Nutrition: Assessing for early weekend day 5 LOS. Admit: primary hyper- parathyroidism, hypercalcemia, neprolithiasis. Is now NPO for surgery later this morning - parathyroidectomy planned. EMR reviewed. Pt is up +15# in the last 3 months, from 247# per pt reported wt on 05/26/19 to 262# per pt reported wt on 08/18/19. When not NPO for testing/surgery, pt eating incredibly well with 100% meal intakes at all meals. Has missed 4 out of the last 6 meals on 08/21 and 08/22 d/t NPO status for testing, but ate 100% of all other meals allowed. Recent BM 08/21. Anticipate continued low nutrition risk given high po intake when not NPO. Will follow for any decline in po later next week.
--- NOTE | 2019-08-24 16:08 | PATH ---
[facility] [address] [address] PATHOLOGY RPT PROCEDURE Name: LUPE NICOLE Room #: 463-P ADM IN M.R.#: [id number] Admission: 08/19/19 Date of : 64 Discharge: Report #: [id number] Path Case #: [id number] [facility] Accession Number: [id number] . 01 Material submitted: . PART A: colon - POLYP AT ASCENDING COLON. Modifiers: ascending PART B: colon - POLYP AT SIGMOID COLON. Modifiers: sigmoid . 01 Clinician provided ICD-10: R74.0 G82.50 . 02 Diagnosis: A. Polyp, at ascending colon, endoscopic biopsy: - Tubular adenoma. - Negative for high grade dysplasia. . B. Polyp, at sigmoid colon, endoscopic biopsy: - One fragment showing tubular adenoma without high grade dysplasia. - Remainder of fragments showing hyperplastic features with no evidence of dysplasia. (IUV/db; 08/24/2019) LBQ 08/24/2019 1216 Local . 02 Electronically signed: . Karol Burt MD, Pathologist NPI- [id number] . 01 Gross description: . A. The specimen is received in formalin, labeled "Lupe Nicole, polyp at ascending colon" and consists of a segment of morgan-brown tissue measuring 0.6 x 0.5 x 0.3 cm. The margin is inked black. It is bisected and entirely submitted in A1. . B. The specimen is received in formalin, labeled "Lupe Nicole, polyp at sigmoid colon" and consists of 2 fragments of pink-morgan tissue measuring 0.3 x 0.3 cm and 0.3 x 0.2 cm which are entirely submitted in B1. (SDY; 08/23/2019) SYU/SYU 08/23/2019 1142 Local . 02 Pathologist provided ICD-10: D12.2, D12.5 . 02 CPT . 940159, 233834 Specimen Comment: A courtesy copy of this report has been sent to [phone], [phone], [place] [address] PATHOLOGY RPT PROCEDURE Name: LUPE NICOLE Room #: 463-P [facility] IN ..#: [id number] Admission: 08/19/19 Date of : 64 Discharge: Report #: [id number] Path Case #: [id number] Specimen Comment: [id number] Specimen Comment: Report sent to / DR HERNANDEZ Performed at: [address], [place], [place] [id number] MD Adrien Corrales MD Phone: [phone] Performed at: [address] [id number] MD Karol Burt MD Phone: [phone]
--- NOTE | 2019-08-24 16:11 | NUR ---
PT HAD PARATHYROIDECTOMY THIS DAY. IT IS ANTICIPATED THAT PT MAY BE MEDICALLY STABLE TO DC BEGINING OF NEXT WEEK BACK TO [facility]. CONTACT FACILITY AND ASK FOR DON OR NOTEREADER TO NOTIFY THEM . FAX ORDERS TO REPORT TO BE CALLED TO NUMBER ABOVE. [employer] CAN BE ARRANGED OR [employer] (3 HR WINDOW).
--- NOTE | 2019-08-24 16:13 | NUR ---
FAXED CLINICAL UPDATE RECEIVED CONFIRMATION AND LEFT MSG WITH RICH IN INTAKE THAT PT WILL NOT DC OVER WEEKEND.
--- NOTE | 2019-08-24 19:57 | NUR ---
Assumed pt care this am, pt went down to surgery before 9 am, received NPO. Pt came bace late in the pm. PLaced on telemetry as per order and moved from 463 to 457 running os NSR, fluids restarted. ONc clear liquids, pm meds not given since pt was drowsy. VS stable, endorsed to the night nurse.
[2019-08-25 03:35] VITALS: BP 120/64
[2019-08-25 07:22] VITALS: BP 128/82
--- NOTE | 2019-08-25 07:52 | NUR ---
PROGRESS PT INCOMPLETE QUAD NEEDS ASSIST WITH ALL ADL'S. REQUESTING PAIN MEDICATIONS FOR LEFT SHOULDER AND REMAINDER OF LEFT SIDE OF BODY. DRSG TO SURGICAL SITE C/D/I LOOSENED SLIGHTLY PT WAS COMPLAINING IT WAS CHOKING HIM. PAIN PILL GIVEN WITH SOME EFFECT PT SLEPT AFTER.
--- NOTE | 2019-08-25 11:24 | NUR ---
Received awake on bed. Due medications given as prescribed, able to swallow meds w/o difficulty. On room air. Vital signs stable. On heart monitoring- NSR; no complaints of chest pain, crushing or heaviness sensation. On clear liquids- tolerating well; no nausea, no vomiting and no abdominal pain noted. With male external mcgarry in place- draining well; output measured and recorded accordingly. With SL at L upper arm and L FA- intact and flushing well. Pt turned on his sides regularly- refusing at times. Assisted in ADLs. Complained of pain, due PRN pain meds given as prescribed. S/P Parathyroidectomy 08/24/2019- dressing in place; C/D/I; with suture removal kit at bedside, serial Calcium blood test done. To continue monitoring patient.
[2019-08-25 15:49] VITALS: BP 109/66
[2019-08-25 20:10] VITALS: BP 130/79
[2019-08-25 23:45] VITALS: BP 129/87
[2019-08-26 04:30] VITALS: BP 127/69
[2019-08-26 06:20] LABS: ALBUMIN 3.3 g/dL (3.4-5.0); DIRECT BILIRUBIN < 0.1 mg/dL (<0.1-0.2); SGOT 37 U/L (15-37); SGPT 65 U/L (30-65); TOTAL BILIRUBIN 0.6 mg/dL (<0.1-1.0); TOTAL PROTEIN 7.1 g/dL (6.4-8.2)
--- NOTE | 2019-08-26 08:52 | HC ---
[facility] [place] [address] [address] [place] [address] CONSULTATION Name: LUPE SULTANA Room #: 457-P ADM IN M.R.#: [id number] Admission: 08/19/19 Attend Phys: Ansley Yoo MD Discharge: Date of : 64 Report #: [id number] THIS REPORT FOR: cc: [facility] - Clinic physician unknown [facility] - Clinic physician unknown Dom Kaplan MD ~ CC: Ansley FLORES unknown DATE OF SERVICE: 08/24/2019 We were asked by Dr. Hyu Lyle to see the patient. HISTORY OF PRESENT ILLNESS: The patient is a 59-year-old with hypercalcemia. The patient was admitted 08/17 with complaints of diarrhea and abdominal pain. The patient was admitted in transfer from [facility]. The patient states that this has been an ongoing problem since the patient was discharged from the hospital in late May. The patient stated at the time of admission that his abdomen got intermittently tight and swollen and pain is diffuse. The patient was seen in the hospital for concerns with small-bowel obstruction in May. CT scan confirmed a closed loop bowel obstruction. Evaluation also revealed hypercalcemia. The patient was taken to surgery and exploratory laparotomy was done, but no small-bowel obstruction was found. PAST MEDICAL HISTORY: The patient has quadriplegia following a fall approximately a year ago, has neurogenic bowel and bladder and central cord lesion in the C-spine. MEDICATIONS AT THE TIME OF ADMISSION: Fluticasone nasal spray, latanoprostene eye drops, fosinopril, loratadine, multivitamin, polyethylene glycol, pregabalin, tizanidine, baclofen, methocarbamol, nortriptyline, temazepam, oxycodone, docusate, dextran eye drops. ALLERGIES: None known. SOCIAL HISTORY: Tobacco use. REVIEW OF SYSTEMS: CONSTITUTIONAL: At the time of admission, negative for fever, chills. EYES: Negative for eye pain or vision change. HENT: Negative for headache, rhinorrhea, sore throat. RESPIRATORY: Negative for cough, shortness of breath. CARDIAC: Negative for chest pain or palpitations. GASTROINTESTINAL: Positive for diffuse abdominal pain. GENITOURINARY: Negative for burning, frequency, urgency. [facility] [address] [place] [address] CONSULTATION Name: LUPE SULTANA Room #: 457-P [facility] IN ..#: [id number] Admission: 08/19/19 Attend Phys: Ansley Yoo MD Discharge: Date of : 64 Report #: [id number] MUSCULOSKELETAL: Negative for back pain or muscle pain. NEUROLOGIC: Chronic deficit related to central core lesion noted. SKIN: Negative for rash or infection. ENDOCRINE: Hypercalcemia. Negative for goiter or tremor. PHYSICAL EXAMINATION: GENERAL: The patient is lying in bed, seems to be comfortable. VITAL SIGNS: Temperature 36.7, pulse rate 73, respiratory rate 18, blood pressure 164/97, O2 sat 97 on room air. HEENT: No scleral icterus, no arcus. NECK: No mass, no bruit. CHEST: Clear to auscultation. HEART: Rhythm regular. ABDOMEN: Somewhat distended, no tenderness, no mass. EXTREMITIES: We note atrophy in upper extremity distal muscles and some contracture on the right side and in the left hand. Right leg appears to have a foot drop, left leg appears relatively normal. SKIN: No rash or infection. PSYCHIATRIC: Shows insight into problem, answers questions appropriately. IMPRESSION: The patient has hypercalcemia. We note a CT scan shows adenoma. We have been asked to participate should this not be accessible through the neck. I have discussed this with the patient who understands that median sternotomy as a potential issue if the adenoma cannot be found through the neck. Risks and details of this exposure were discussed. Options and alternatives were reviewed. The patient understands all of this and agrees. Thank you for the consult. <ELECTRONICALLY SIGNED> By: Dom Kaplan MD 08/26/19 0852 0841 0858 Dom Kaplan MD /nt
--- NOTE | 2019-08-26 09:19 | NUR ---
PROGRESS PT MORE ALERT AND TALKATIVE THIS SHIFT, PAIN IN THROAT IMPROVED TAKING OXYCODONE AND MORPHINE PRN TO CONTROL PAIN. TOLERATING CLEAR LIQUIDS NO DIFFICULTY SWALLOWING NOTED NOT MUCH GRIMACING. DRINKING LEMON SHISHMAREF IRA SODA.CONDOM CATH DRAINING DARK YELLOW URINE WITHOUT DIFFICULTY CONTINUE POC.
[2019-08-26 14:51] VITALS: BP 113/50
--- NOTE | 2019-08-26 15:52 | NUR ---
Assumed patient care at 0715. Vital signs stable. Dressing to neck from Parathyroidectomy clean, dry and intact. Doctor here this am, he removed dressing. Steri-strips are clean, dry and intact to this area. Patient continues on clear liquids. He has been very tired during this shift. Will continue to monitor this patient and chart as necessary.
[2019-08-26 20:07] VITALS: BP 106/58
[2019-08-27 01:15] VITALS: BP 147/101
[2019-08-27 01:20] VITALS: BP 133/78
[2019-08-27 01:35] LABS: HCO3 20.2 mmol/L (22.0-26.0); PCO2 34.5 mmHg (35.0-45.0); PO2 85.1 mmHg (80.0-100.0); pH 7.385 (7.360-7.450); sO2 96.4 % (92.0-98.0)
--- NOTE | 2019-08-27 01:39 | NUR ---
pt bradycardic and difficult to arouse, economic development manager called. see economic development manager flowsheet.
[2019-08-27 01:48] LABS: HEMATOCRIT 44.9 % (42.0-52.0); HEMOGLOBIN 14.8 gm/dL (14.0-18.0); MCH 29.6 pg (26.0-34.0); MCHC 33.1 g/dL (28.0-37.0); MCV 89.6 fL (80.0-100.0); RBC 5.01 mil/uL (4.50-6.00); RDW 15.5 % (10.5-14.5); WBC 7.1 thou/uL (4.0-11.0)
[2019-08-27 02:03] LABS: ANION GAP 12 mmol/L (7-16); BUN 19 mg/dL (7-18); CHLORIDE 104 mmol/L (98-107); CO2 22 mmol/L (21-32); CREATININE 1.5 mg/dL (0.7-1.3); GLUCOSE 112 mg/dL (74-106); POTASSIUM 3.6 mmol/L (3.5-5.1); SODIUM 138 mmol/L (136-145)
[2019-08-27 02:13] LABS: ALBUMIN 3.5 g/dL (3.4-5.0); SGOT 44 U/L (15-37); SGPT 80 U/L (30-65); TOTAL BILIRUBIN 0.7 mg/dL (<0.1-1.0); TOTAL PROTEIN 7.1 g/dL (6.4-8.2); TROPONIN-I <0.06 ng/mL (<0.06)
--- NOTE | 2019-08-27 03:34 | NUR ---
RECIEVED CARE OF THIS PAITENT AT 1900. PATIENT ALERT AND ORIENTED X4. HAS 2 PIV'S IN LARM. HAS CONDOM CATH THAT IS PATENT. STERI-STRIPS ON NECK INTACT. PATIENT IS AN INCOMPLETE QUAD. R EXTS 3+ EDEMA. HAD EPISODE WHERE BECAME LINDA AND HARD TO AROUSE. BP WAS ELEVATED AT BEGINNING OF EPISODE BUT RETURNED TO NORMAL. O2 SAT WAS 90% ON RA, O2 APPLIED AT 6L AND O2 SAT WAS 100%. RAPID RESPONSE WAS CALLED. VITALS WERE STABLE AND ACCUCHECK WAS WNL. PATIENT DID AROUSE AFTER MUCH STERNAL RUBBING AND TALKING TO. STATED THAT HE WAS ALL RIGHT. LAB AND ABG'S DONE. MIDNIGHT MEDS HELD AT REQUEST OF MANAGER GREEN. DENIES PAIN. SLEPT MOST OF NIGHT.
[2019-08-27 05:15] VITALS: BP 125/80
[2019-08-27 08:53] VITALS: BP 110/75
[2019-08-27 15:00] VITALS: BP 113/68
--- NOTE | 2019-08-27 19:31 | NUR ---
Assumed patient care at 0715. Vital signs stable, LSCTA, ABD distended and non-tender. Steri-strips are clean, dry and intact to incision site (no s/s of infection). Patient mentioned that "the detectives just left my room." Patient has made no other non-reality based statements during this shift. He continues on a Clear Liquid Diet and has been asking for "real food." Report given to on-coming nurse.
[2019-08-27 20:28] VITALS: BP 114/69
--- NOTE | 2019-08-28 03:06 | NUR ---
PROGRESS PT A/O X4 INCOMPLETE QUAD SO BEDBOUND, SKIN C/D/I NO AREAS OF BREAKDOWN NOTED. INCISION TO ANTERIOR NECK KWASI WELL APPROXIMATED WITH INTACT SUTURES AND STERI STRIPS. CONDOM CATH TO DD DRAINING CLEAR DARK YELLOW URINE. REPOSITIONED FEQUENTLY. PT HAS GOOD APPETITE AND DRINKS WELL. VSS CONTINUE POC.
[2019-08-28 06:15] LABS: CALCIUM 8.6 mg/dL (8.5-10.1); CREATININE 1.1 mg/dL (0.7-1.3); MAGNESIUM 1.5 mg/dL (1.8-2.4); POTASSIUM 3.3 mmol/L (3.5-5.1)
[2019-08-28 06:32] VITALS: BP 95/67
[2019-08-28 07:26] VITALS: BP 107/78
[2019-08-28] MEDS ORDERED: PEPCID20 MG PO (13:00)
[2019-08-28] MEDS ORDERED: SIMETHICON CHEW80 M1 PO (13:00)
[2019-08-28] MEDS ORDERED: DULCOLAX10 MG RECTAL (13:00)
[2019-08-28] MEDS ORDERED: MAGNESIUM400 MG PO (13:00)
[2019-08-28] MEDS ORDERED: CITRATE OF MAG296 M1 PO (13:00)
[2019-08-28] MEDS ORDERED: VITAMIN D21250 MC1 PO (13:00)
[2019-08-28] MEDS ORDERED: KLOR-CON 1010 MEQ PO (13:00)
--- NOTE | 2019-08-28 13:40 | NUR ---
FAXED CLINICAL UPDATE TO [facility] RECEIVED CONFIRMATION AND LEFT MSG WITH FRED IN ADM. DP TO FOLLOW
--- NOTE | 2019-08-28 14:43 | NUR ---
PT DISCHARGING TODAY BACK TO [facility] FAXED DC ORDERS/SUMMARY TO FACILITY SPOKE WITH FRED IN ADM SHE RECEIVED ORDERS. TRANSPORT ARRANGED THROUGH [facility] TRIP#[id number] FOR [id number] TODAY. PT TO NOTIFY FAMILY UNIT NOTIFIED AND CHART COPY PER US. RN TO CALL REPORT TO [phone].
[2019-08-28 14:53] VITALS: BP 106/69
--- NOTE | 2019-08-28 15:20 | NUR ---
Assumed patient care at 0715. Vital signs stable, LSCTA, BS x's 4, abdomen was distended but, he no longer has this problem as he had an extra large bowel movement. Steri-strips are in place but are loosening at Parathyroidectomy Incision Site. Patient continues on Clear Liquids. He has no nausea and/or vomiting since surgery. Patient has requested and received Oxycodone 10mg po for "level ten" generalized pain. Medication reduced pain level to a "level two." Patient to be Discharged soon, as order has been recieved.
--- NOTE | 2019-08-28 18:07 | PATH ---
[facility] [place] [place] [address] PATHOLOGY RPT PROCEDURE Name: LUPE SULTANA Room #: 457-P DIS IN M.R.#: [id number] Admission: 08/19/19 Date of : 64 Discharge: 08/28/19 Report #: [id number] Path Case #: [id number] [facility] Accession Number: [id number] . 01 Material submitted: . parathyroid gland - LEFT LOWER PARATHYROID,FS. Modifiers: left, lower . 02 Frozen section diagnosis: . FROZEN SECTION DIAGNOSIS (Dr. Karol Burt) . FSA1. Left lower parathyroid, excision: - Markedly hypercellular and cystic parathyroid tissue, 4.7 grams. . These findings are discussed with Dr. David Lyle and Dr. Dom Kaplan in OR-6 at [facility]. A written report is placed in the patient's chart. . . GROSS DESCRIPTION A. Specimen A is received fresh from the OR labeled with the patient's name, "left lower parathyroid", consists of a 4.7 g well encapsulated oval brown tissue measuring 2.3 x 2 x 1.5 cm in greatest dimension. The capsule is shiny, intact and is inked black. It is serially sectioned to show a cystic lesion with focal brown-morgan homogenous tissue. Specimen is serially sectioned and a representative government relations section is submitted for frozen section as FSA1, this is subsequently submitted for permanent section as A1. Additional remainder tissue is submitted for permanent sections only as A2 and A3. (IUV:window maker; 08/24/2019) . Frozen section performed at [facility], [address] [place] [address]. DIAN/TRENTON . 02 Diagnosis: Parathyroid, left lower parathyroid, parathyroidectomy: - Cystic parathyroid adenoma, 4.7 grams. - Adjacent unremarkable thymic tissue identified. . (IUV:mml; 08/28/2019) [facility] 08/28/2019 1504 Local . 02 Comment: Examination shows much of the cystic cavity lined by a markedly hypercellular parathyroid tissue, consistent with an adenoma. Definitive invasion into the capsular wall is not identified. Focally adjacent to [facility] [address] [place] [address] PATHOLOGY RPT PROCEDURE Name: LUPE SULTANA Room #: 457-P DIS IN M.R.#: [id number] Admission: 08/19/19 Date of : 64 Discharge: 08/28/19 Report #: [id number] Path Case #: [id number] the cyst and attached to the cyst is thymic tissue. Scattered areas of cauterized thymic tissue are identified as well. The thymic tissue measures approximately 3 to 4 mm in greatest dimensions. . (IUV:mml; 08/28/2019) . 02 Electronically signed: . Karol Burt MD, Pathologist NPI- [id number] . 03 Gross description: . PLEASE SEE GROSS DESCRIPTION DICTATED UNDER FROZEN SECTION. /MBR 08/24/2019 1620 Local . 02 Pathologist provided ICD-10: D35.1 . 02 CPT . 094536, [id number] Specimen Comment: A courtesy copy of this report has been sent to [phone] Specimen Comment: [phone] Specimen Comment: Report sent to / DR HERNANDEZ Performed at: [address] [id number] MD Adrien Corrales MD Phone: [phone] Performed at: [address] [id number] MD Karol Burt MD Phone: [phone] Performed at: [address] [place] [id number] MD Adrien Corrales MD Phone: [phone]
== END 2019-08-28 15:55 | DRG 625 ==
LOC: ER 21:15 → 4W 08-19 00:25
PROVIDERS: Emergency Medicine; Internal Medicine; Nurse Practitioner Family; Specialist; ADMIT Hospitalist
DX: E21.3 Hyperparathyroidism, unspecified (principal); G82.50 Quadriplegia, unspecified; G93.41 Metabolic encephalopathy; R74.0 Nonspecific elevation of levels of transaminase and lactic acid dehydrogenase [LDH]; F17.210 Nicotine dependence, cigarettes, uncomplicated; F32.9 Major depressive disorder, single episode, unspecified; N31.9 Neuromuscular dysfunction of bladder, unspecified; N20.0 Calculus of kidney; E55.9 Vitamin D deficiency, unspecified; K59.00 Constipation, unspecified; Z79.899 Other long term (current) drug therapy; Z20.828 Contact with and (suspected) exposure to other viral communicable diseases
CPT/HCPCS: 10040; 10045; 50010; 50101; 50386; 50417; 50445; 56524; 56526; 56760; 62110; 62900; 65020; 65040; 65130; 65131; 70005